=== PATIENT | female | born 1955 | race Caucasian/White ===

== ENCOUNTER 2020-09-11 10:21 | Emergency (ER) | payer OTHER, SELFPAY ==
[2020-09-11 10:29] VITALS: BP 115/68; PULSE 67; RESP 18; TEMP 36.6; O2SAT 98
--- NOTE | 2020-09-11 10:43 | ED.GENADULT ---
HPI - General Adult General Chief complaint: Skin/Abscess/Foreign Body Stated complaint: rash/insct bite Source: patient Mode of arrival: ambulatory Limitations: no limitations History of Present Illness HPI narrative: Pleasant 65 y/o female. PMHx: HLD, OA. Presents to [facility] today with acute complaints of insect bite located to LT forearm. 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 She explains that may of her work partners had been exposed to 'tick bites'. She tells me over the past 72 hours her forearm has become more erythematous, tender to touch, and warm. Pt did not actually visualize insect or contributory culprit. No open wounds, discharge. No fever, chills, myalgia, joint pain. No dyspnea or additional areas of integumentary involvement. Client has been using OTC topical remedies with subtherapeutic relief. She has not yet sought out medical evaluation until now, today. She is w/o additional acute c/o illness upon exam. Related Data Allergies Allergy/AdvReac Type Severity Reaction Status Date / Time No Known Allergies Allergy Verified 08/29/20 14:10 Review of Systems Review of Systems: CONSTITUTIONAL: Denies fever, chills, sweats. EYES: Denies visual changes, redness, discharge. ENT: Denies rhinorrhea, congestion, sore throat, otalgia. CARDIOVASCULAR: Denies chest pain, palpitations, edema. RESPIRATORY: Denies dyspnea, wheezing, cough GASTROINTESTINAL: Denies abdominal pain, nausea, vomiting, diarrhea. GENITOURINARY: Denies dysuria, hematuria, abnormal discharge SKIN: Positive insect bite LUE. No rash or itching. MUSCULOSKELETAL: Denies acute back pain, joint pain, or myalgia. NEUROLOGIC: Denies numbness, or focal weakness. PSYCHIATRIC: Denies anxiety or depression. All systems reviewed & are unremarkable except as noted in HPI and below PMFSH Past Medical History Medical History At risk for decreased bone density BMI 30.0-30.9,adult Breast cancer screening Colon cancer screening Eczema Encounter for wellness examination History of colon polyps Hypercholesterolemia Hyperlipidemia Family History Family History Sibling Diabetes mellitus Mother Family history of malignant neoplasm of breast in first degree relative Family history of malignant neoplasm of cervix Social History Social History Smoking status: Never smoker Second hand tobacco smoke exposure: No Alcohol intake: never Substance use: never Substance use type: does not use Gender identity (if verbalized by the patient): Female Exam Narrative: GENERAL: This is a well-nourished, well-developed adult, in no apparent distress. HEAD: normocephalic, atraumatic. EYES: PERRL. Sclera clear/white. EARS: External ears normal, auditory canals clear and without drainage, TMs normal. NOSE: External nose normal. Positive Rhinorrhea, no obstruction, nares patent. THROAT: Mucous membranes moist, posterior pharynx clear. No exudates. NECK: Neck supple, non-tender without lymphadenopathy, masses or thyromegaly. CARDIOVASCULAR: Regular rate and rhythm without murmurs, gallops, or rubs. Pulses good LUE. RESPIRATORY: Clear to auscultation. Breath sounds equal bilaterally. No wheezes, rales, or rhonchi. GASTROINTESTINAL: Abdomen soft, non-tender, nondistended. Bowel sounds are active. No guarding. SKIN: warm, intact, good texture and turgor. With 0.5 cm insect bite located to LT posterior FA. Area is erythematous and tender. I do not appreciate obvious 'target' lesion or fluctuance. No centralized necrosis. Surrounding tissue blanches well. NEURO: No focal neurologic deficits. No sensory deficits LUE. EXTREMITIES: Negative. Course Course Emergency Course: Pleasant 65 y/o female. PMHx non-contibutor
== END 2020-09-11 10:54 | disposition home or self-care (01) ==
PROVIDERS: Emergency Provider Nurse Practitioner Adult Health; PCP Family Medicine
DX: S50.862A Insect bite (nonvenomous) of left forearm, initial encounter (principal); W57.XXXA Bitten or stung by nonvenomous insect and other nonvenomous arthropods, initial encounter; E78.00 Pure hypercholesterolemia, unspecified; I10 Essential (primary) hypertension
CPT/HCPCS: 99213; G0463

== ENCOUNTER → 2021-01-31 15:18 | Outpatient (CLI) | payer OTHER, SELFPAY ==
--- NOTE | ~2021-01-31 | MM_ITS ---
EXAMINATION: MM screening magen BI w gabriel HISTORY: Screening mammogram TECHNIQUE: Craniocaudal and mediolateral oblique 3-D tomosynthesis images were obtained and synthetic 2-D images were generated. CAD analysis was submitted and interpreted. COMPARISON: 10/09/2018 bilateral screening mammogram / bilateral screening mammogram BREAST PARENCHYMAL COMPOSITION: There are scattered areas of fibroglandular density. FINDINGS: There is no evidence of suspicious mass, calcification, or architectural distortion to sugg est malignancy in either breast. There has been no suspicious interval change. IMPRESSION: 1. No mammographic evidence of malignancy. 2. Recommend routine screening mammography in one year. 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
== END ==
PROVIDERS: PCP Family Medicine; Visit Provider Physician Assistant
DX: Z12.31 Encounter for screening mammogram for malignant neoplasm of breast (principal)
CPT/HCPCS: 77063; 77067

== ENCOUNTER → 2021-02-13 01:17 | Outpatient (CLI) | payer OTHER, SELFPAY ==
[2021-02-13 13:21] LABS: Influenza Control Positive
[2021-02-14 13:55] LABS: SARS-CoV-2 RNA PCR Negative
== END ==
PROVIDERS: PCP Family Medicine; Visit Provider Family Medicine
DX: J06.9 Acute upper respiratory infection, unspecified (principal); Z20.822 Contact with and (suspected) exposure to COVID-19
CPT/HCPCS: 87804; C9803; U0003; U0005

== ENCOUNTER → 2021-03-21 14:56 | Outpatient (CLI) | payer OTHER, SELFPAY ==
--- NOTE | ~2021-03-21 | DEXA_ITS ---
Bone Density Report Name: KENDRICK ARIAS Age: 66 Sex: Female Ethnicity: White Date of : 1955 Indication: postmenopausal; screening for osteoporosis; height loss; prior fracture; Referring Provider: Vesta Guzman Study: Bone densitometry was performed. Exam Date: March 21, 2021 Accession number: [id number] Bone Density: Region BMD T-score Z-score Classification AP Spine (L1-L4) 0.897 -1.4 0.4 Osteopenia Femoral Neck (Left) 0.755 -0.8 0.7 Normal Total Hip (Left) 0.901 -0.3 0.9 Normal Femoral Neck (Right) 0.786 -0.6 0.9 Normal Total Hip (Right) 0.914 -0.2 1.0 Normal Total Hip Mean 0.908 -0.3 1.0 Normal World Health Organization criteria for BMD impression classify patients as: Normal (T-score at or above -1.0), Osteopenia (T-score between -1.0 and -2.5), or Osteoporosis (T-score at or below -2.5). 10-year Fracture Risk(1): Major Osteoporotic Fracture 13% Hip Fracture 0.8% Reported Risk Factors: [place] (), Neck BMD=0.755, BMI=30.9, previous fracture (1) FRAX(R) Version 3.08. Fracture probability calculated for an untreated patient. Fracture probability may be lower if the patient has received treatment. Previous Exams: Region Exam Age BMD T-score BMD Change BMD Change Date g/cm2 vs Baseline vs Previous AP Spine(L1-L4) 03/21/2021 66 0.897 -1.4 -0.109* -0.058* 05/27/2012 57 0.955 -0.8 -0.052* -0.052* 06/04/2008 53 1.007 -0.4 Total Hip(Left) 03/21/2021 66 0.901 -0.3 -0.034* 0.009 05/27/2012 57 0.892 -0.4 -0.043* -0.043* 06/04/2008 53 0.935 -0.1 Total Hip(Right) 03/21/2021 66 0.914 -0.2 -0.023 -0.021 05/27/2012 57 0.935 -0.1 -0.002 -0.002 06/04/2008 53 0.937 0.0 *Denotes significance at 95% confidence level, LSC for AP Spine = 0.022 g/cm2, LSC for Total Hip = 0.027 g/cm2 Clinical Information Provided by Patient: Has had a low trauma fracture Has used the following medications: Vitamin D Patient maximum height was 66 Menopause Age: 54 No regular weight bearing exercise Does not regularly consume dairy products Drinks caffeinated beverages Onset of menses at age 13 Number of children 3 Impression: The patient has low bone mass, based on the Total Spine T-score. The patient has an estimated ten-year risk of hip fracture of 0.8% and an estimated ten-year risk of major frac
== END ==
PROVIDERS: Visit Provider Physician Assistant
DX: Z78.0 Asymptomatic menopausal state (principal); M85.88 Other specified disorders of bone density and structure, other site
CPT/HCPCS: 77080

== ENCOUNTER → 2021-06-15 07:31 | Outpatient (CLI) | payer OTHER, SELFPAY ==
--- NOTE | ~2021-06-15 | XR_ITS ---
EXAMINATION: XR knee LT 3V DATE: 06/15/2021 07:56 INDICATION: Left knee pain TECHNIQUE: Three views of the left knee were obtained. COMPARISON: 05/13/2012 FINDINGS: Alignment is normal. No fracture or osteochondral lesion. There is mild tricompartmental os teoarthritis characterized by tiny marginal osteophytes. No joint effusion/synovitis. Soft tissues a re unremarkable. IMPRESSION: 1. No acute osseous abnormality. Reviewed, dictated and finalized at location B.
--- NOTE | ~2021-06-15 | XR_ITS ---
EXAMINATION: XR knee RT 3V DATE: 06/15/2021 07:56 INDICATION: Chronic knee pain TECHNIQUE: Three views of the right knee were obtained. COMPARISON: None. FINDINGS: Alignment is normal. No fracture or osteochondral lesion. There is mild tricompartmental os teoarthritis characterized by tiny marginal osteophytes. No joint effusion/synovitis. Soft tissues a re unremarkable. IMPRESSION: 1. No acute osseous abnormality. Reviewed, dictated and finalized at location B.
== END ==
PROVIDERS: PCP Family Medicine; Visit Provider Physician Assistant Medical
DX: M25.569 Pain in unspecified knee (principal); G89.29 Other chronic pain; M79.669 Pain in unspecified lower leg
CPT/HCPCS: 73562

== ENCOUNTER 2021-09-25 11:28 | Outpatient (CLI) | payer OTHER, SELFPAY ==
--- NOTE | ~2021-09-25 | XR_ITS ---
XR knee RT min 4V, XR knee LT min 4V 09/25/2021 11:54 Indication: Bilateral knee pain Procedure: 4 views of each knee Comparison: No prior studies for comparison. Findings: There is mild bilateral osteoarthritis of the knees. No fracture, subluxation or dislocatio n. No significant joint effusion. Impression: 1: Mild bilateral osteoarthritis of the knees. Reviewed, dictated and finalized at location B. Impression: 1: Mild bilateral osteoarthritis of the knees. Impression: 1: Mild bilateral osteoarthritis of the knees.
== END 2021-09-25 11:29 | disposition home or self-care (01) ==
PROVIDERS: PCP Family Medicine; Visit Provider Physician Assistant
DX: M17.0 Bilateral primary osteoarthritis of knee (principal)
CPT/HCPCS: 73564

== ENCOUNTER → 2022-01-09 15:38 | Outpatient (CLI) | payer OTHER, SELFPAY ==
--- NOTE | ~2022-01-09 | MR_ITS ---
EXAMINATION: MR knee RT wo con DATE: 01/09/2022 16:24 INDICATION: Knee pain since May of this year. Swelling. No trauma. TECHNIQUE: Magnetic resonance imaging (MRI) of the right knee was performed without intravenous contr ast. Sequences included axial PD-weighted FS FSE, coronal PD-weighted FSE and PD-weighted FS FSE, sag ittal PD-weighted FSE, and sagittal T2-weighted FS FSE. COMPARISON: X-ray right knee 09/25/2021 FINDINGS: Medial compartment: Degenerative signal change in the anterior horn of the medial meniscus. Vertically oriented hyperinte nse signal at the meniscal root may represent degenerative change or possibly an old healed root tear . No discrete medial meniscal tear noted currently. Moderate diffuse cartilage thinning, with full-th ickness fissures along the posterior aspect of the weightbearing surface of the medial femoral condyl e. Mild osteophytosis. Lateral compartment: Meniscus intact. Mild diffuse thinning of cartilage and osteophytosis. Patellofemoral compartment: Cartilage and retinacula intact. Minimal partial-thickness signal abnormality in the cartilage on the medial facet. Mild osteophytosis. Ligaments and tendons: ACL, PCL, MCL, and LCL are intact. Fluid: Large volume joint fluid. Osseous/other: No suspicious focal or diffuse marrow signal. IMPRESSION: 1. Full-thickness cartilaginous fissures on the posterior aspect of the medial femoral condyle. 2. Tricompartmental osteoarthritic change, moderate in the medial compartment. 3. Large joint effusion. 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
== END ==
PROVIDERS: PCP Family Medicine; Visit Provider Orthopaedic Surgery
DX: M25.461 Effusion, right knee (principal); M17.11 Unilateral primary osteoarthritis, right knee
CPT/HCPCS: 73721

== ENCOUNTER 2023-07-02 13:15 | Outpatient (CLI) | payer OTHER, SELFPAY ==
--- NOTE | ~2023-07-02 | MM_ITS ---
EXAMINATION: MM screening magen BI w gabriel HISTORY: Screening TECHNIQUE: Craniocaudal and mediolateral oblique 3-D tomosynthesis images were obtained and synthetic 2-D images were generated. CAD analysis was submitted and interpreted. COMPARISON: Comparison to multiple prior studies sequentially, with oldest reviewed study dated 05/27. BREAST PARENCHYMAL COMPOSITION: The breasts are almost entirely fatty. FINDINGS: There is no evidence of suspicious mass, calcification, or architectural distortion to sugg est malignancy in either breast. There has been no suspicious interval change. IMPRESSION: 1. No mammographic evidence of malignancy. 2. Recommend routine screening mammography in one year. BI-RADS Category 1: Negative Reviewed, dictated and finalized at location A.
== END 2023-07-02 13:16 ==
LOC: MICIMG 13:15
PROVIDERS: PCP Family Medicine; Visit Provider Family Medicine
DX: Z12.31 Encounter for screening mammogram for malignant neoplasm of breast (principal)
CPT/HCPCS: 77063; 77067

== ENCOUNTER 2024-06-09 09:42 | Emergency (ER) | payer OTHER, SELFPAY ==
--- NOTE | ~2024-06-09 | XR_ITS ---
EXAMINATION: XR foot RT min 3V DATE: 06/09/2024 10:08 INDICATION: Posttraumatic lateral right foot pain TECHNIQUE: Dorsoplantar, two oblique and lateral views of the right foot were obtained. COMPARISON: None. FINDINGS: Bone alignment is normal. No fracture. Polyarticular osteoarthritis mild to moderate severity at the interphalangeal joints and mild at the naviculocuneiform and multiple tarsometatarsal and metatarsoph alangeal joints. Moderate-sized Achilles and plantar calcaneal spurs. Additional enthesophytes at the lateral base of the fifth metatarsal and at the medial base of the second and third proximal phalang es. IMPRESSION: 1. No acute osseous abnormality. 2. Degenerative changes including to moderate polyarticular osteoarthritis at the right mid and foref oot and scattered enthesophytes. Reviewed, dictated and finalized at location B. IMPRESSION: 1. No acute osseous abnormality. 2. Degenerative changes including to moderate polyarticular osteoarthritis at t he right mid and forefoot and scattered enthesophytes.
[2024-06-09 09:50] VITALS: BP 124/60; PULSE 61; RESP 16; TEMP 36.9; O2SAT 99
--- NOTE | 2024-06-09 09:55 | ED.LOWEXIN ---
HPI - Extremity Injury (Lower) General Chief Complaint: Extremity Injury, Lower Stated Complaint: right foot pain after injury Time Seen by Provider: 06/09/24 09:52 Source: patient, RN notes reviewed and old records reviewed Mode of arrival: ambulatory Limitations: no limitations History of Present Illness HPI Narrative: 69-year-old female presents to the [facility] with right mid lateral foot pain. States that she or older foot Mild swelling noted to the mid lateral aspect. Related Data Home Medications ?Medication ?Instructions ?Recorded ?Confirmed ?Last Taken ?Type ibuprofen 600 mg tablet mg 06/09/24 Unknown History Allergies Allergy/AdvReac Type Severity Reaction Status Date / Time No Known Allergies Allergy Verified 06/09/24 09:58 Review of Systems Review of Systems: All systems reviewed & are unremarkable except as noted in HPI and below Constitutional: Constitutional: Reports no additional constitutional complaints ENT: Reports system reviewed and no additional complaints, except as documented Cardiovascular: Cardiovascular: Reports no additional cardiovascular complaints, Denies chest pain and Denies dyspnea Respiratory: Respiratory: Reports no additional respiratory complaints, Denies chest congestion, Denies cough and Denies dyspnea Musculoskeletal: Musculoskeletal: Reports as per HPI Integumentary/Breasts: Skin/Breast: Reports system reviewed and no additional complaints, except as docu PMFSH Past Medical History Medical History Sciatica associated with disorder of lumbar spine Knee pain, bilateral History of colon polyps BMI 30.0-30.9,adult At risk for decreased bone density Breast cancer screening Colon cancer screening Encounter for wellness examination Hypercholesterolemia Eczema Hyperlipidemia Family History Family History Sibling Diabetes mellitus Mother Family history of malignant neoplasm of breast in first degree relative Family history of malignant neoplasm of cervix Social History Social History Smoking status: Never smoker Second hand tobacco smoke exposure: No Alcohol intake: never Substance use: never Substance use type: does not use Lack of Transportation: No Lack of Food: Never True Current Housing: I Have Housing Concerned About Future Housing: Decline to Answer Difficulty Paying Gas/Electric Bills: Decline to Answer Difficulty Paying for Meds: Decline to Answer Currently Unemployed: Decline to Answer Education: Decline to Answer Difficulty w/ Childcare or Family Care: Decline to Answer Living arrangements: with family Gender identity (if verbalized by the patient): Female Spiritual care concerns: No Agree to blood products: Yes Comments At the time of my signature, I reviewed and agree with the nursing past medical, surgical, social, and family history. There is no relevant family history pertinent to the patient complaint. Exam Const: General: cooperative, healthy appearing, comfortable, no acute distress, well developed, alert and well nourished Nutritional Appearance: well nourished Orientation/consciousness: patient oriented x3 Limitations: no limitations HENMT: Head: normal to inspection Eyes: General: appearance normal, both eyes and all related structures Alignment and Position: alignment normal Neck: Neck: normal visual inspection, full ROM, no lymphadenopathy and no meningeal signs Chest: Chest palpation & inspection: normal inspection of the chest Resp: Effort & Inspection: normal respiratory effort and able to speak in complete sentences Cardio: Rate: regular rate Skin: General skin exam: normal color and no rashes or lesions noted Neuro: General: patient oriented x3, moves all extremities and no meningeal signs Cognition (Neuro): normal cognition Speech: normal speech Gait exam (Neuro): Normal gait present Extrem: General: normal to inspection, full ROM and capillary refill normal Right lower extremity: ankle Details: normal to inspection and foot Details: normal capillary refill, tenderness Location: of the lateral foot Location: in the mid-section, toes with normal ROM and vascular exam Details: dorsalis pedis pulse present and normal capillary refill; no unusual warmth, no laceration, no ecchymosis and no crepitus Psych: Appearance: grossly normal and well kempt Mental Status: mental status grossly normal Speech and movement: Normal speech and movement present and Clear speech present Affect: normal affect Attitude: cooperative Course Course Level of Care: Express Care Visit Vital Signs Vital signs: Vital Signs Temperature 98.5 F 06/09/24 09:50 Pulse Rate 61 06/09/24 09:50 Respiratory Rate 16 06/09/24 09:50 Blood Pressure 124/60 06/09/24 09:50 Pulse Oximetry 99 06/09/24 09:50 Oxygen Delivery Room Air 06/09/24 09:50 Temperature 98.5 F 06/09/24 09:50 Pulse Rate 61 06/09/24 09:50 Respiratory Rate 16 06/09/24 09:50 Blood Pressure 124/60 06/09/24 09:50 Pulse Oximetry 99 06/09/24 09:50 Oxygen Delivery Room Air 06/09/24 09:50 Reviewed MDM - Extremity Injury (Lower) MDM Narrative Medical decision making narrative: Patient sitting in exam room. Patient is nontoxic, vitals stable. Patient presents with foot pain after rolling it. Patient's post concerns she may have broke it. X-ray shows no fracture. Patient is appropriate for outpatient treatment with close follow-up Discharge instructions reviewed with patient, as well as provided in writing per nursing staff. The instructions also include specific and strict return/GO TO THE ER as well as f/u information. All questions have been answered, and the patient deny any further questions with discharge and discharge plan. Some parts of this dictation were generated by voice recognition software and may contain typographical and/or grammatical inaccuracies. Differential Diagnosis Differential diagnosis: Likely other (Foot contusion, foot fracture) Imaging Data Radiologist's impression: EXAMINATION: XR foot RT min 3V DATE: 06/09/2024 10:08 INDICATION: Posttraumatic lateral right foot pain TECHNIQUE: Dorsoplantar, two oblique and lateral views of the right foot were obtained. COMPARISON: None. FINDINGS: Bone alignment is normal. No fracture. Polyarticular osteoarthritis mild to moderate severity at the interphalangeal joints and mild at the naviculocuneiform and multiple tarsometatarsal and metatarsophalangeal joints. Moderate-sized Achilles and plantar calcaneal spurs. Additional enthesophytes at the lateral base of the fifth metatarsal and at the medial base of the second and third proximal phalanges. IMPRESSION: 1. No acute osseous abnormality. 2. Degenerative changes including to moderate polyarticular osteoarthritis at the right mid and forefoot and scattered enthesophytes. Critical Care Time Critical Care Time Critical Care Time: No Discharge Plan Discharge Clinical Impression: Polyarticular osteoarthritis Right foot sprain Qualifiers: Encounter type: initial encounter Qualified Code(s): S93.601A - Unspecified sprain of right foot, initial encounter Patient Disposition: Home Condition: Stable Instructions: Foot Sprain (ED) Additional Instructions: Your Xray did not show a fracture. Wear good supportive shoes at all times. Ice should be applied to help reduce swelling. It can be used for 20 to 30 minutes, every 2-3 hours while awake. Do not apply ice directly to your skin. Aubrey wrap or a neoprene pull on brace or foot support will help decrease inflammation and help with pain You can alternate ibuprofen 600mg and Tylenol 650mg every 4 hours as needed for pain Please schedule a follow-up visit with your personal physician for further evaluation and treatment within 2 weeks especially if symptoms persist. For new or worsening symptoms go directly to the emergency room Patient Language: Georgian Prescriptions: No Action ibuprofen 600 mg tablet atorvastatin 20 mg tablet 20 mg PO DAILY Qty: 90 3RF Follow-up/Referrals: Mirella Neil MD [Primary Care Provider] - 2 Weeks ([facility] follow-up) Time of Disposition: 10:41
== END 2024-06-09 10:50 | disposition home or self-care (01) ==
PROVIDERS: Emergency Provider Nurse Practitioner; PCP Family Medicine
DX: M15.9 Polyosteoarthritis, unspecified (principal); S93.601A Unspecified sprain of right foot, initial encounter; E78.5 Hyperlipidemia, unspecified; Z79.1 Long term (current) use of non-steroidal anti-inflammatories (NSAID); X58.XXXA Exposure to other specified factors, initial encounter
CPT/HCPCS: 73630; 99213; G0463

== ENCOUNTER 2024-07-02 13:48 | Outpatient (CLI) | payer OTHER, SELFPAY ==
--- NOTE | ~2024-07-02 | DEXA_ITS ---
Bone Density Report Name: KENDRICK ARIAS Age: 69 Sex: Female Ethnicity: White Date of : 1955 Indication: postmenopausal; screening for osteoporosis; Referring Provider: SHIRA VILLEDA Study: Bone densitometry was performed. Exam Date: July 02, 2024 Accession number: [id number] Bone Density: Region BMD T-score Z-score Classification AP Spine(L1-L4) 0.891 -1.4 0.6 Osteopenia Femoral Neck (Left) 0.747 -0.9 0.8 Normal Total Hip (Left) 0.911 -0.3 1.2 Normal Femoral Neck (Right) 0.779 -0.6 1.1 Normal Total Hip (Right) 0.906 -0.3 1.1 Normal Femoral Neck Mean 0.763 -0.8 0.9 Normal Total Hip Mean 0.909 -0.3 1.1 Normal World Health Organization criteria for BMD impression classify patients as: Normal (T-score at or above -1.0), Osteopenia (T-score between -1.0 and -2.5), or Osteoporosis (T-score at or below -2.5). 10-year Fracture Risk(1): Major Osteoporotic Fracture 8.2% Hip Fracture 0.7% Reported Risk Factors: [place] (), Neck BMD=0.747, BMI=29.7 (1) FRAX(R) Version 3.08. Fracture probability calculated for an untreated patient. Fracture probability may be lower if the patient has received treatment. Clinical Information Provided by Patient: Has used the following medications: Vitamin D Patient maximum height was 66 Menopause Age: 57 No regular weight bearing exercise Drinks caffeinated beverages Onset of menses at age 12 Number of children 3 Impression: The patient has low bone mass, based on the Total Spine T-score. Discussion: BONE DENSITY IS LOW AT ONE OR MORE SKELETAL SITES. This patient's lowest T-score is low at one or more skeletal sites. It meets the World Health Organization's (WHO) criteria for ?low bone mass? (T-score between -1.0 and -2.5). The patient's 10-year risk of fracture as calculated by FRAX is less than the threshold where pharmacological therapy is recommended by the National Osteoporosis Foundation (NOF). However, all treatment decisions require clinical judgment and consideration of individual patient factors, including patient preferences, comorbidities, previous drug use, risk factors not captured in the FRAX model (e.g., frailty, falls, vitamin D deficiency, increased bone turnover, interval significant decline in bone density) and possible under or overestimation of fracture risk by FRAX. The patient should follow a healthful lifestyle (good nutrition with adequate calcium and vitamin D, and appropriate weight-bearing exercise). Follow-Up: Consider repeating this study in 2 to 3 years to reassess this patient's status, or sooner if there is some new clinical indication. Reported by: ELKIN on 07/02/2024 2:16:00 PM. Reviewed, dictated and finalized at location A.
--- NOTE | ~2024-07-02 | MM_ITS ---
EXAMINATION: MM screening [facility] BI w gabriel HISTORY: Screening TECHNIQUE: Craniocaudal and mediolateral oblique 3-D tomosynthesis images were obtained and synthetic 2-D images were generated. CAD analysis was submitted and interpreted. COMPARISON: Comparison to multiple prior studies sequentially, with oldest reviewed study dated 10/09. BREAST PARENCHYMAL COMPOSITION: Not dense: There are scattered areas of fibroglandular density. FINDINGS: There is no evidence of suspicious mass, calcification, or architectural distortion to sugg est malignancy in either breast. There has been no suspicious interval change. IMPRESSION: 1. No mammographic evidence of malignancy. 2. Recommend routine screening mammography in one year. 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
--- OUTSIDE RECORDS SUMMARY | 2024-07-02 13:52 | XMS_ITS | Clinical Summary ---
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 60 Tablet 3 08/09/2022 Active meloxicam (MOBIC) 15 mg tablet Take 1 tablet by mouth once daily 30 Tablet 3 10/31/2023 Active Active Problems No known active problems Social History Tobacco Use Types Packs/Day Years Used Date Smoking Tobacco: Never Assessed Comments Unknown Sex and Gender Information Value Date Recorded Sex Assigned at Not on file Legal Sex Female 1:55 PM CDT Gender Identity Not on file Sexual Orientation Not on file Plan of Treatment Health Maintenance Due Date Last Done Comments DTAP/TDAP/TD VACCINES (1 - Tdap) 01/22/1975 BREAST CANCER SCREENING 1996 COLORECTAL SCREENING 01/22/2001 Colorectal Cancer Screening 01/22/2001 FIT-DNA Q 3 years 01/22/2001 FIT/FOBT Q 1 year 01/22/2001 Flex Sig/CT Colonography Q 5 years 01/22/2001 PNEUMOCOCCAL VACCINE 50+ YEARS (1 of 1 - PCV) 01/23/20 06 ZOSTER VACCINE (1 of 2) 01/22/2006 OSTEOPOROSIS SCREENING 01/22/2021 INFLUENZA VACCINE (#1) 2023 RSV VACCINE (60+ or ) (1 - 1-dose 75+ series) 01/22/2031 Insurance [place] [id number] 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
== END 2024-07-02 13:49 | disposition home or self-care (01) ==
LOC: CHSIMG 13:49
PROVIDERS: PCP Family Medicine; Visit Provider Student in an Organized Health Care Education/Training Program
DX: Z78.0 Asymptomatic menopausal state (principal); Z12.31 Encounter for screening mammogram for malignant neoplasm of breast; M85.88 Other specified disorders of bone density and structure, other site
CPT/HCPCS: 77063; 77067; 77080